=== PATIENT | female | born 1985 | race Caucasian/White ===

== ENCOUNTER 2021-03-05 04:34 | Emergency (ER) | payer OTHER ==
[~2021-03-05] VITALS: Ht 167.6 cm; Wt 59.0 kg
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
[2021-03-05 04:37] VITALS: BP 131/75
[2021-03-05 04:55] VITALS: BP 131/75
--- NOTE | 2021-03-05 04:55 | NUR ---
Patient discharged in custody of [facility] with v/s stable. Written and verbal after care instructions given and explained. Ambulatory with steady gait. All questions addressed prior to discharge. Advised to follow up with PMD.
== END 2021-03-05 04:55 | disposition home or self-care (01) ==
LOC: MED 04:34
DX: F10.129 Alcohol abuse with intoxication, unspecified (principal); Z02.89 Encounter for other administrative examinations; V89.2XXA Person injured in unspecified motor-vehicle accident, traffic, initial encounter; Y93.89 Activity, other specified; Y92.89 Other specified places as the place of occurrence of the external cause; Y99.8 Other external cause status
CPT/HCPCS: 99283